=== PATIENT | male | born 1975 | race Caucasian/White ===

== ENCOUNTER 2016-07-22 13:53 | Inpatient (IN) ==
[2016-07-22] MEDS ORDERED: NARCAN IV ONE ×2 (14:00→20:38)
[2016-07-22] MEDS ORDERED: NS 1,000 ML IV ONE (14:04)
[2016-07-22 14:05] LABS: BLOOD TYPE ARTERIAL; METHB 1.6 % (0.0-1.5); PO2(98.6) 57 mmHg (60-100); SAMPLE BLOOD; SAO2 92.3 % (95.0-100.0); THB 14.8 g/dL (11.5-17.4)
[2016-07-22 14:06] LABS: MODALITY ROOM AIR; PCO2(98.6) 75 mmHg (35-45)
[2016-07-22 14:07] LABS: ALLEN TEST YES; DRAW SITE R RADIAL
[2016-07-22 14:18] LABS: MANUAL DIFF NEEDED? NO
[2016-07-22 14:23] LABS: BASO% 0.2 % (0.0-0.8); EOS# 0.47 X1000 (0.0-0.7); EOS% 4.7 % (0.0-10.0); HEMOGLOBIN 14.2 g/dL (14.0-18.0); LYMPH# 1.91 X1000 (1.2-3.4); MCH 32.4 PG (27-31); MCV 98.2 FL (81-99); MONO# 1.02 X1000 (0.11-0.59); MONO% 10.1 % (1.7-9.3); MPV 8.6 FL (7.4-10.4); PLT 312 X1000 (130-400); RBC 4.38 XMIL (4.7-6.1)
[2016-07-22 14:50] LABS: AGAP 8; ALBUMIN 4.4 g/dL (3.5-5.0); ALKALINE PHOSPHATASE 50 U/L (32-122); BUN 9 mg/dL (8-22); CALCIUM 9.4 mg/dL (8.8-10.2); CHLORIDE 96 mmol/L (98-107); COSMO 269; GOT 16 U/L (10-34); GPT 17 U/L (10-44); MAGNESIUM 2.2 mg/dL (1.5-2.7); POTASSIUM 4.2 mmol/L (3.5-5.1); SODIUM 134 mmol/L (136-145); TCO2 30 mmol/L (25-35); TOTAL BILIRUBIN 0.58 mg/dL (0.20-1.00); TOTAL PROTEIN 7.2 g/dL (6.3-8.3)
[2016-07-22 15:04] LABS: FREE T4 1.12 ng/dL (0.93-1.70)
[2016-07-22 15:28] LABS: ACETAMINOPHEN < 1.2 ug/mL (10-30)
[2016-07-22] MEDS ORDERED: NARCAN ONE (15:30)
[2016-07-22] MEDS ORDERED: CLINDAMYCIN 600 MG/NS 600 MG/50 ML IVPB IV ONE (15:50)
--- NOTE | 2016-07-22 15:57 | Diag Imaging Result Document ---
PROCEDURE NAME: KNEE 3 VIEWS LEFT - 07/22/2016 PLAIN RADIOGRAPH OF THE LEFT KNEE, 3 VIEWS: COMPARISON: None available. FINDINGS: There is no evidence of fracture, dislocation, or intrinsic osseous lesion. The joint spaces are preserved. There is marked prepatellar soft tissue edema. IMPRESSION: Prepatellar soft tissue edema but no evidence of acute osseous abnormality.
--- NOTE | 2016-07-22 15:58 | Diag Imaging Result Document ---
PROCEDURE NAME: HEAD W/O CONTRAST - 07/22/2016 CT BRAIN WITHOUT CONTRAST. TECHNIQUE: Dose reduction protocol. COMPARISON: No comparison films. FINDINGS: No parenchymal hemorrhage. No epidural or subdural hematoma. No subarachnoid hemorrhage. No mass identified on this noncontrasted exam. No midline shift. No hydrocephalus. No sinus opacification. IMPRESSION: No hemorrhage. Negative brain CT without contrast. A preliminary report was given at 3:05 p.m.
--- NOTE | 2016-07-22 16:05 | Diag Imaging Result Document ---
PROCEDURE NAME: CHEST-PORTABLE - 07/22/2016 SINGLE FRONTAL RADIOGRAPH OF THE CHEST: COMPARISON: None available. FINDINGS: The lungs are grossly clear. There is no discrete pleural fluid collection or pneumothorax. The cardiomediastinal silhouette and upper airway are grossly unremarkable. IMPRESSION: No evidence of acute chest pathology.
[2016-07-22 17:49] LABS: UR AMPHETAMINES QUAL PRESUMPTIVE POSITIVE (NONE DETECT); UR BARBITUATES QUAL NONE DETECTED (NONE DETECT); UR BENZODIAZEPIN QUAL NONE DETECTED (NONE DETECT); UR CANNABINOIDS QUAL NONE DETECTED (NONE DETECT); UR COCAINE QUAL NONE DETECTED (NONE DETECT); UR METHADONE QUAL NONE DETECTED (NONE DETECT); UR OPIATES QUAL NONE DETECTED (NONE DETECT); UR OXYCODONE QUAL NONE DETECTED (NONE DETECT); UR PCP QUAL NONE DETECTED (NONE DETECT)
[2016-07-22 17:57] LABS: URINE SOURCE CLEAN CATCH
[2016-07-22 18:02] LABS: BILIRUBIN URINE NEGATIVE (NEGATIVE); BLOOD URINE SMALL (NEGATIVE); COLOR YELLOW; GLUCOSE URINE NEGATIVE (NEGATIVE); LEUKOCYTES URINE SMALL (NEGATIVE); NITRITE URINE NEGATIVE (NEGATIVE); PH URINE 5.5; PROTEIN URINE TRACE mg/dL (NEGATIVE); TURBIDITY URINE TURBID (CLEAR); URINE MICRO REVIEW NEEDED? YES; UROBILINOGEN URINE NORMAL (NORMAL)
--- NOTE | 2016-07-22 18:04 | PROVIDER DOCUMENTATION ---
This chart was entered by Genoveva Salvador Scribe, acting as scribe for Narayan Ramos MD. HPI-General Adult <Garret SantiagoDarnell - Last Filed: 07/22/16 15:51> - General Source: patient, EMS - History of Present Illness -Gen Adult Nature of Presenting Problems: PT IS A 41YOM PRESENTING TO THE ED C/O AMS W/ RESPIRATORY DISTRESS. EMS REPORTS THEY WERE DISPATCHED AT 1305 TO [facility] IN [place] FOR A RESPIRATORY ARREST. ACCORDING TO EMS THEY ARRIVED ON SCENE AT 1310 AND PT WAS UNRESPONSIVE, NO VOLUNTARY RESPIRATIONS NOTED OR GAG REFLEX. ACCORDING TO CO-WORKERS HE HAS A HX OF THIS. EMS STATES THEY PLACED A 7.5 ET-TUBE AT 1320 WITH A 16G IN LEFT FOREARM. UPON ARRIVAL TO ED EMS WAS PREPARING TO GIVE NARCAN AND PT WOKE UP AND EX-TUBATED HIMSELF AND REMOVED IV ON RAMP OF ED AT 1347. EMS PLACED PT ON ED BED ROOM 13 AT 1349 AND PT WAS ALTERED WITH AN O2 Sat of 85%, 94hr, and bp of 146/93. PT OXYGEN SATURATION BEGAN TO DECLINE INTO THE LOW 70'S, SO 2MG OF NARCAN WAS ORDERED AND GIVEN TO PT IN LEFT HIP IM. 1357 PT LOST GAG REFLUX AND WAS BEING PREPARED TO INTUBATE, PTS OXY SAT WAS IN THE LOW 70'S AT THIS TIME AND HYPERVENTILATION WAS BEING PREFORMED IN PREP FOR AIRWAY MANAGEMENT BY ET TUBE. 1400 PT AWOKE AND OXYGEN SAT RETURNED TO 98% WITH A STABLE HEART RATE AND BP, PT STATES HE WAS USING METH TODAY, LAST PM AND YESTERDAY BUT DENIES ANY OTHER ILLICIT DRUG USE. PT IS A ALERT, AWAKE, AND OXYGENATING WELL AFTER NARCAN. AT THIS TIME NO OTHER COMPLAINTS Location of Pain/Injury: reports: generalized Pain Radiation: reports: no radiation Quality of Pain: reports: none Severity: reports: severe Onset/Duration: reports: just prior to arrival Timing: reports: still present, improving, intermittent Context/Activities at Onset: reports: light activity Modifying Factors: improves with: nothing Associated Symptoms: reports: shortness of breath, other (LOC WITH RESP ARREST AND AMS WITH RESP DISTRESS). denies: chest pain Similar Symptoms Previously?: Yes (ACCORDING TO CO-WORKERS PT HAS A HX PREVIOUS EPISODES ) Recently seen or treated by another doctor?: No <Narayan Ramos - Last Filed: 07/22/16 18:04> - General Source: patient, EMS - History of Present Illness -Gen Adult Location of Pain/Injury: reports: generalized Pain Radiation: reports: no radiation Quality of Pain: reports: none Severity: reports: severe Onset/Duration: reports: just prior to arrival Timing: reports: still present, improving, intermittent Context/Activities at Onset: reports: light activity Modifying Factors: improves with: nothing Associated Symptoms: reports: shortness of breath, other. denies: chest pain Similar Symptoms Previously?: Yes Recently seen or treated by another doctor?: No <Andrew Shah - Last Filed: 07/22/16 21:44> - General Chief Complaint: Altered Mental Status Stated Complaint: resp arrest Time Seen by Provider: 07/22/16 13:51 Allergies/Adverse Reactions: Patient Allergies Allergy/AdvReac Type Severity Reaction Status Date / Time No Known Allergies Allergy Verified 12/02/14 08:06 Home Medications: Home Medication List Medication Instructions Recorded Confirmed Last Taken Type NK [No Home Medications] 07/22/16 07/22/16 Unknown History Review of Systems - Adult - REVIEW OF SYSTEMS - ADULT Constitutional: reports: no symptoms reported Eyes: reports: no symptoms reported Ears, Nose, Mouth & Throat: reports: no symptoms reported Cardiovascular: reports: no symptoms reported Respiratory: reports: see HPI, excessive sputum production, shortness of breath , other (PT IN RESP FAILURE/DISTRESS). denies: dyspnea on exertion Gastrointestinal: reports: no symptoms reported Genitourinary: reports: no symptoms reported Musculoskeletal: reports: no symptoms reported Integumentary: reports: no symptoms reported Neurological: reports: no symptoms reported Psychiatric: reports: see HPI, alcohol/drug dependence, other (POSS OVER DOSE OF METH USE, PT DENIES ANY OTHER ILLICIT DRUG USE). denies: depression, emotional problems Endocrine: reports: no symptoms reported Hematologic/Lymphatic: reports: no symptoms reported Allergic/Immunologic: reports: no symptoms reported All Other Systems: Reviewed and Negative <Narayan Ramos - Last Filed: 07/22/16 18:04> - REVIEW OF SYSTEMS - ADULT Constitutional: reports: no symptoms reported Eyes: reports: no symptoms reported Ears, Nose, Mouth & Throat: reports: no symptoms reported Cardiovascular: reports: no symptoms reported Respiratory: reports: see HPI, excessive sputum production, shortness of breath , other. denies: dyspnea on exertion Gastrointestinal: reports: no symptoms reported Genitourinary: reports: no symptoms reported Musculoskeletal: reports: no symptoms reported Integumentary: reports: no symptoms reported Neurological: reports: no symptoms reported Psychiatric: reports: see HPI, alcohol/drug dependence, other. denies: depression Endocrine: reports: no symptoms reported Hematologic/Lymphatic: reports: no symptoms reported Allergic/Immunologic: reports: no symptoms reported All Other Systems: Reviewed and Negative <Andrew Shah - Last Filed: 07/22/16 21:44> Past History - Adult - PAST MEDICAL HISTORY-ADULT Review of Records: reports: Old Records Reviewed, Nursing Assessment Review, Medications Reviewed, Social history reviewed & non-contributory. Major Childhood Illnesses: reports: denies history Cardiovascular: reports: denies history Respiratory: reports: denies history Gastrointestinal: reports: denies history Obstetrical/Gynecological: reports: denies history Genitourinary: reports: denies history Musculoskeletal: reports: denies history Neurological: reports: denies history Endocrine/Immune: reports: denies history Other Conditions: reports: denies history - IMMUNIZATION STATUS Childhood Immunizations: See Nurse Assessment Flu Vaccine: See Nurse Assessment - FAMILY HISTORY Family History: reviewed, not pertinent - SOCIAL HISTORY Smoking: cigarettes, greater than 1 pack/day Provider spent 3-5 mins advising pt. on dangers of tobacco.: Discussed manners to quit use, and f/u contacts for add'l counseling. Substance Use: other (METH) Living Situation: alone <Juan JoséNarayan Tello - Last Filed: 07/22/16 18:04> - PAST MEDICAL HISTORY-ADULT Review of Records: reports: Old Records Reviewed, Nursing Assessment Review, Medications Reviewed, Social history reviewed & non-contributory. Major Childhood Illnesses: reports: denies history Cardiovascular: reports: denies history Respiratory: reports: denies history Gastrointestinal: reports: denies history Obstetrical/Gynecological: reports: denies history Genitourinary: reports: denies history Musculoskeletal: reports: denies history Neurological: reports: denies history Endocrine/Immune: reports: denies history Other Conditions: reports: denies history - IMMUNIZATION STATUS Childhood Immunizations: See Nurse Assessment Flu Vaccine: See Nurse Assessment - FAMILY HISTORY Family History: reviewed, not pertinent - SOCIAL HISTORY Smoking: cigarettes, greater than 1 pack/day Provider spent 3-5 mins advising pt. on dangers of tobacco.: Discussed manners to quit use, and f/u contacts for add'l counseling. Substance Use: other Living Situation: alone <Andrew Shah - Last Filed: 07/22/16 21:44> Physical Exam-General - PHYSICAL EXAM-ADULT Initial Vital Signs Reviewed: Yes - CONSTITUTIONAL General Appearance: severe distress, lethargic, obtunded. negative: appears well, alert, no apparent distress - EYES Eyes: PERRL/EOMI, fundi clear, no AV nicking, pale conjunctivae. negative: pink conjunctivae - HEAD, EARS, NOSE, MOUTH & THROAT HENMT: normocephalic/atraumatic, moist mucous membranes, TMs normal, pharynx normal, other (LARGE AMOUNTS OF [place]ITE [place]) - NECK Neck: non-tender, full range of motion, supple, normal inspection - RESPIRATORY Respiratory: chest non-tender, lungs clear, no pleuratic chest pain, respiratory distress, prolonged expiration, decreased rate. negative: normal breath sounds, no respiratory distress, no accessory muscle use - CARDIOVASCULAR Cardiovascular: normal peripheral pulses, no edema, no gallop, no JVD, no murmur , tachycardia. 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 negative: appears well, alert, no apparent distress - EYES Eyes: PERRL/EOMI, fundi clear, no AV nicking, pale conjunctivae. negative: pink conjunctivae - HEAD, EARS, NOSE, MOUTH & THROAT HENMT: normocephalic/atraumatic, moist mucous membranes, TMs normal, pharynx normal, other - NECK Neck: non-tender, full range of motion, supple, normal inspection - RESPIRATORY Respiratory: chest non-tender, lungs clear, no pleuratic chest pain, respiratory distress, prolonged expiration, decreased rate. negative: normal breath sounds, no respiratory distress, no accessory muscle use - CARDIOVASCULAR Cardiovascular: normal peripheral pulses, no edema, no gallop, no JVD, no murmur , tachycardia. 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 - PSYCHIATRIC Psych/Mental Status: disheveled, depressed affect <Andrew Shah - Last Filed: 07/22/16 21:44> Progress - PLAN OF CARE/RESULTS Progress/Plan/Lab Results: Vital Signs - 8 hr 07/22/16 13:56 Pulse Rate 94 H Respiratory Rate 16 Blood Pressure 146/93 O2 Sat by Pulse Oximetry 88 L Laboratory Results - last 24 hr 07/22/16 07/22/16 07/22/16 13:50 14:05 14:05 WBC RBC Hgb Hct MCV MCH MCHC RDW Std Deviation Plt Count MPV Neut % (Auto) Lymph % (Auto) [place] % (Auto) Eos % (Auto) Baso % (Auto) Neut # (Auto) Lymph # (Auto) [place] # (Auto) Eos # (Auto) Baso # (Auto) Specimen Type ARTERIAL Sample Site R RADIAL pH 7.20 L pCO2 75 H* pO2 57 L HCO3 23.8 Base Excess -1.0 Oxyhemoglobin 86.6 L* ABG O2 Sat (Calculated) 18.0 ABG O2 Saturation 92.3 L ABG Carboxyhemoglobin 4.60 H ABG Methemoglobin 1.6 H Stephane Test YES A-a O2 Difference -1.0 Total Hemoglobin 14.8 Lactate 1.50 Blood Gas Modality ROOM AIR FiO2 % 21.0 Sodium 134 L Potassium 4.2 Chloride 96 L Carbon Dioxide 30 Anion Gap 8 BUN 9 Creatinine 1.0 Estimated GFR/1.73 m2 > 60 BUN/Creatinine Ratio 9 Glucose 135 H Calculated Osmolality 269 Calcium 9.4 Magnesium 2.2 Total Bilirubin 0.58 AST 16 ALT 17 Alkaline Phosphatase 50 Troponin T < 0.010 Total Protein 7.2 Albumin 4.4 Globulin 2.8 Albumin/Globulin Ratio 1.6 Vitamin B12 TSH Free T4 Salicylates < 3.00 L Acetaminophen < 1.2 L Plasma/Serum Ethyl Alc 07/22/16 07/22/16 07/22/16 14:05 14:05 14:05 WBC 10.06 RBC 4.38 L Hgb 14.2 Hct 43.0 MCV 98.2 MCH 32.4 H MCHC 33.0 RDW Std Deviation 14.9 H Plt Count 312 MPV 8.6 Neut % (Auto) 66.0 Lymph % (Auto) 19.0 L [place] % (Auto) 10.1 H Eos % (Auto) 4.7 Baso % (Auto) 0.2 Neut # (Auto) 6.64 H Lymph # (Auto) 1.91 [place] # (Auto) 1.02 H Eos # (Auto) 0.47 Baso # (Auto) 0.02 Specimen Type Sample Site pH pCO2 pO2 HCO3 Base Excess Oxyhemoglobin ABG O2 Sat (Calculated) ABG O2 Saturation ABG Carboxyhemoglobin ABG Methemoglobin Stephane Test A-a O2 Difference Total Hemoglobin Lactate Blood Gas Modality FiO2 % Sodium Potassium Chloride Carbon Dioxide Anion Gap BUN Creatinine Estimated GFR/1.73 m2 BUN/Creatinine Ratio Glucose Calculated Osmolality Calcium Magnesium Total Bilirubin AST ALT Alkaline Phosphatase Troponin T Total Protein Albumin Globulin Albumin/Globulin Ratio Vitamin B12 428 TSH 2.97 Free T4 1.12 Salicylates Acetaminophen Plasma/Serum Ethyl Alc Orders Category Date Time Status Saline Loc NOW Care 07/22/16 14:04 Active CHEST-PORTABLE [RAD] Stat Exams 07/22/16 14:04 Taken HEAD W/O CONTRAST [CT] Stat Exams 07/22/16 14:04 Taken KNEE 3 VIEWS LEFT [RAD] Routine Exams 07/22/16 15:04 Taken ABG [RESP] Routine Lab 07/22/16 13:50 Completed ACETAMINOPHEN [TDM] Stat Lab 07/22/16 14:05 Completed ALCOHOL BLOOD Stat Lab 07/22/16 14:05 Completed CBC WITH ELECTRONIC DIFF [HEME] Stat Lab 07/22/16 14:05 Completed COMPREHENSIVE METABOLIC PANEL [CHEM] Stat Lab 07/22/16 14:05 Completed FREE T4 Stat Lab 07/22/16 14:05 Completed MAGNESIUM [CHEM] Stat Lab 07/22/16 14:05 Completed SALICYLATES [TDM] Stat Lab 07/22/16 14:05 Completed TROPONIN T Stat Lab 07/22/16 14:05 Completed TSH Stat Lab 07/22/16 14:05 Completed URINALYSIS W/POSS RFLX CULT [URINALYSIS] Stat Lab 07/22/16 14:05 Uncollected URINE DRUG SCREEN Stat Lab 07/22/16 14:05 Uncollected VITAMIN B12 Stat Lab 07/22/16 14:05 Completed 0.9% Sodium Chloride Inj [Ns] 1,000 ml Med 07/22/16 14:04 Discontinued IV 999 mls/hr Clindamycin 600 mg/Ns Med 07/22/16 15:50 Active 600 mg in 50 ml IV NOW Naloxone [Narcan] Med 07/22/16 15:30 Discontinued 2 mg .ROUTE .STK-MED ONE Naloxone [Narcan] Med 07/22/16 14:00 Discontinued 2 mg IV NOW ONE EKG [EKG] Stat Ther 07/22/16 14:04 Ordered Result Diagrams: 07/22/16 14:05 07/22/16 14:05 - REASSESSMENT Reassessment #1 Time Reassessed: 15:51 (RN requested that I look at pt's L knee. It has several blisters and discolored lesions that may be a burn. pt states he has no idea when or why he developed these lesions. x-ray was ordered. We will cover c Clindamycin ) <Garret Santiago - Last Filed: 07/22/16 15:51> - PLAN OF CARE/RESULTS Result Diagrams: 07/22/16 14:05 07/22/16 14:05 - XRAY 1 XRAY: Left XRAY Study: Knee (PREPATTELLAR SOFT TISSUE EDEMA BUT NMO EVIDENCE OF ACUTE OSSEOUS ABNORM) 2 XRAY: Bilateral XRAY Study: Chest (NAD) - CT/MRI 1 CT Study: Head (NEG HEAD CT) <Narayan Ramos X - Last Filed: 07/22/16 18:04> - PLAN OF CARE/RESULTS Progress/Plan/Lab Results: Vital Signs - 8 hr 07/22/16 13:56 07/22/16 16:00 07/22/16 19:29 Pulse Rate 94 H 76 72 Respiratory Rate 16 11 L 10 L Blood Pressure 146/93 119/81 125/87 O2 Sat by Pulse Oximetry 88 L 99 97 Laboratory Results - last 24 hr 07/22/16 07/22/16 07/22/16 13:50 14:05 14:05 WBC RBC Hgb Hct MCV MCH MCHC RDW Std Deviation Plt Count MPV Neut % (Auto) Lymph % (Auto) [place] % (Auto) Eos % (Auto) Baso % (Auto) Neut # (Auto) Lymph # (Auto) [place] # (Auto) Eos # (Auto) Baso # (Auto) Specimen Type ARTERIAL Sample Site R RADIAL pH 7.20 L pCO2 75 H* pO2 57 L HCO3 23.8 Base Excess -1.0 Oxyhemoglobin 86.6 L* ABG O2 Sat (Calculated) 18.0 ABG O2 Saturation 92.3 L ABG Carboxyhemoglobin 4.60 H ABG Methemoglobin 1.6 H Stephane Test YES A-a O2 Difference -1.0 Total Hemoglobin 14.8 Lactate 1.50 Liter Flow Blood Gas Modality ROOM AIR FiO2 % 21.0 Sodium 134 L Potassium 4.2 Chloride 96 L Carbon Dioxide 30 Anion Gap 8 BUN 9 Creatinine 1.0 Estimated GFR/1.73 m2 > 60 BUN/Creatinine Ratio 9 Glucose 135 H Calculated Osmolality 269 Calcium 9.4 Magnesium 2.2 Total Bilirubin 0.58 AST 16 ALT 17 Alkaline Phosphatase 50 Troponin T < 0.010 Total Protein 7.2 Albumin 4.4 Globulin 2.8 Albumin/Globulin Ratio 1.6 Vitamin B12 TSH Free T4 Urine Source Urine Color Urine Clarity Urine Turbidity Urine pH Ur Specific Lewis Urine Protein Ur Glucose (Stick) Urine Ketones Ur Ketones (Stick) Urine Blood Urine Nitrite Urine Bilirubin Urine Urobilinogen Urobilinogen Dipstick Urine Leukocytes Urine WBC (Auto) Urine RBC (Auto) U Epithel Cells (Auto) Urine Bacteria (Auto) Urine Microscopic RBC Urine WBC Urine Microscopic WBC Ur Epithelial Cells Urine Crystals Small Round Cells Urine Bacteria Urine Casts Urine Yeast-like Cells Urine Yeast Urine Glucose Salicylates < 3.00 L Urine Opiates Screen Ur Oxycodone Screen Ur Methadone, Qual Acetaminophen < 1.2 L Ur Barbiturates Screen Ur Phencyclidine Scrn Ur Amphetamines Screen U Benzodiazepines Scrn Urine Cocaine Screen U Cannabinoids Screen Plasma/Serum Ethyl Alc 07/22/16 07/22/16 07/22/16 14:05 14:05 14:05 WBC 10.06 RBC 4.38 L Hgb 14.2 Hct 43.0 MCV 98.2 MCH 32.4 H MCHC 33.0 RDW Std Deviation 14.9 H Plt Count 312 MPV 8.6 Neut % (Auto) 66.0 Lymph % (Auto) 19.0 L [place] % (Auto) 10.1 H Eos % (Auto) 4.7 Baso % (Auto) 0.2 Neut # (Auto) 6.64 H Lymph # (Auto) 1.91 [place] # (Auto) 1.02 H Eos # (Auto) 0.47 Baso # (Auto) 0.02 Specimen Type Sample Site pH pCO2 pO2 HCO3 Base Excess Oxyhemoglobin ABG O2 Sat (Calculated) ABG O2 Saturation ABG Carboxyhemoglobin ABG Methemoglobin Stephane Test A-a O2 Difference Total Hemoglobin Lactate Liter Flow Blood Gas Modality FiO2 % Sodium Potassium Chloride Carbon Dioxide Anion Gap BUN Creatinine Estimated GFR/1.73 m2 BUN/Creatinine Ratio Glucose Calculated Osmolality Calcium Magnesium Total Bilirubin AST ALT Alkaline Phosphatase Troponin T Total Protein Albumin Globulin Albumin/Globulin Ratio Vitamin B12 428 TSH 2.97 Free T4 1.12 Urine Source Urine Color Urine Clarity Urine Turbidity Urine pH Ur Specific Lewis Urine Protein Ur Glucose (Stick) Urine Ketones Ur Ketones (Stick) Urine Blood Urine Nitrite Urine Bilirubin Urine Urobilinogen Urobilinogen Dipstick Urine Leukocytes Urine WBC (Auto) Urine RBC (Auto) U Epithel Cells (Auto) Urine Bacteria (Auto) Urine Microscopic RBC Urine WBC Urine Microscopic WBC Ur Epithelial Cells Urine Crystals Small Round Cells Urine Bacteria Urine Casts Urine Yeast-like Cells Urine Yeast Urine Glucose Salicylates Urine Opiates Screen Ur Oxycodone Screen Ur Methadone, Qual Acetaminophen Ur Barbiturates Screen Ur Phencyclidine Scrn Ur Amphetamines Screen U Benzodiazepines Scrn Urine Cocaine Screen U Cannabinoids Screen Plasma/Serum Ethyl Alc 07/22/16 07/22/16 07/22/16 17:15 17:29 17:45 WBC RBC Hgb Hct MCV MCH MCHC RDW Std Deviation Plt Count MPV Neut % (Auto) Lymph % (Auto) [place] % (Auto) Eos % (Auto) Baso % (Auto) Neut # (Auto) Lymph # (Auto) [place] # (Auto) Eos # (Auto) Baso # (Auto) Specimen Type Sample Site pH pCO2 pO2 HCO3 Base Excess Oxyhemoglobin ABG O2 Sat (Calculated) ABG O2 Saturation ABG Carboxyhemoglobin ABG Methemoglobin Stephane Test A-a O2 Difference Total Hemoglobin Lactate Liter Flow Blood Gas Modality FiO2 % Sodium Potassium Chloride Carbon Dioxide Anion Gap BUN Creatinine Estimated GFR/1.73 m2 BUN/Creatinine Ratio Glucose Calculated Osmolality Calcium Magnesium Total Bilirubin AST ALT Alkaline Phosphatase Troponin T Total Protein Albumin Globulin Albumin/Globulin Ratio Vitamin B12 TSH Free T4 Urine Source Cancelled CLEAN CATCH Urine Color Cancelled YELLOW Urine Clarity Cancelled Urine Turbidity TURBID Urine pH Cancelled 5.5 Ur Specific Lewis Cancelled 1.020 Urine Protein Cancelled TRACE A Ur Glucose (Stick) NEGATIVE Urine Ketones Cancelled Ur Ketones (Stick) NEGATIVE Urine Blood Cancelled SMALL A Urine Nitrite Cancelled NEGATIVE Urine Bilirubin Cancelled NEGATIVE Urine Urobilinogen Cancelled Urobilinogen Dipstick NORMAL Urine Leukocytes SMALL A Urine WBC (Auto) 10-20 A Urine RBC (Auto) 10-20 A U Epithel Cells (Auto) <10 Urine Bacteria (Auto) NEGATIVE Urine Microscopic RBC Cancelled Urine WBC Cancelled Urine Microscopic WBC Cancelled Ur Epithelial Cells Cancelled Urine Crystals Cancelled CA OXALATE PRESENT Small Round Cells Cancelled Not Reportable Urine Bacteria Cancelled Urine Casts Cancelled NONE SEEN Urine Yeast-like Cells NONE SEEN Urine Yeast Cancelled Urine Glucose Cancelled Salicylates Urine Opiates Screen NONE DETECTED Ur Oxycodone Screen NONE DETECTED Ur Methadone, Qual NONE DETECTED Acetaminophen Ur Barbiturates Screen NONE DETECTED Ur Phencyclidine Scrn NONE DETECTED Ur Amphetamines Screen PRESUMPTIVE POSITIVE A U Benzodiazepines Scrn NONE DETECTED Urine Cocaine Screen NONE DETECTED U Cannabinoids Screen NONE DETECTED Plasma/Serum Ethyl Alc 07/22/16 20:45 WBC RBC Hgb Hct MCV MCH MCHC RDW Std Deviation Plt Count MPV Neut % (Auto) Lymph % (Auto) [place] % (Auto) Eos % (Auto) Baso % (Auto) Neut # (Auto) Lymph # (Auto) [place] # (Auto) Eos # (Auto) Baso # (Auto) Specimen Type ARTERIAL Sample Site R RADIAL pH 7.13 L* pCO2 95 H* pO2 71 HCO3 24.1 Base Excess -0.8 Oxyhemoglobin 90.8 L ABG O2 Sat (Calculated) 18.8 ABG O2 Saturation 95.6 ABG Carboxyhemoglobin 3.30 H ABG Methemoglobin 1.7 H Stephane Test YES A-a O2 Difference 38.0 Total Hemoglobin 14.7 Lactate 0.40 L Liter Flow 3.0 Blood Gas Modality CANNULA FiO2 % 32.0 Sodium Potassium Chloride Carbon Dioxide Anion Gap BUN Creatinine Estimated GFR/1.73 m2 BUN/Creatinine Ratio Glucose Calculated Osmolality Calcium Magnesium Total Bilirubin AST ALT Alkaline Phosphatase Troponin T Total Protein Albumin Globulin Albumin/Globulin Ratio Vitamin B12 TSH Free T4 Urine Source Urine Color Urine Clarity Urine Turbidity Urine pH Ur Specific Lewis Urine Protein Ur Glucose (Stick) Urine Ketones Ur Ketones (Stick) Urine Blood Urine Nitrite Urine Bilirubin Urine Urobilinogen Urobilinogen Dipstick Urine Leukocytes Urine WBC (Auto) Urine RBC (Auto) U Epithel Cells (Auto) Urine Bacteria (Auto) Urine Microscopic RBC Urine WBC Urine Microscopic WBC Ur Epithelial Cells Urine Crystals Small Round Cells Urine Bacteria Urine Casts Urine Yeast-like Cells Urine Yeast Urine Glucose Salicylates Urine Opiates Screen Ur Oxycodone Screen Ur Methadone, Qual Acetaminophen Ur Barbiturates Screen Ur Phencyclidine Scrn Ur Amphetamines Screen U Benzodiazepines Scrn Urine Cocaine Screen U Cannabinoids Screen Plasma/Serum Ethyl Alc Orders Category Date Time Status Saline Loc NOW Care 07/22/16 14:04 Active CHEST-PORTABLE [RAD] Stat Exams 07/22/16 14:04 Draft HEAD W/O CONTRAST [CT] Stat Exams 07/22/16 14:04 Completed KNEE 3 VIEWS LEFT [RAD] Routine Exams 07/22/16 15:04 Draft ABG [RESP] Routine Lab 07/22/16 13:50 Completed ABG [RESP] Routine Lab 07/22/16 20:45 Completed ACETAMINOPHEN [TDM] Stat Lab 07/22/16 14:05 Completed ALCOHOL BLOOD Stat Lab 07/22/16 14:05 Completed CBC WITH ELECTRONIC DIFF [HEME] Stat Lab 07/22/16 14:05 Completed COMPREHENSIVE METABOLIC PANEL [CHEM] Stat Lab 07/22/16 14:05 Completed FREE T4 Stat Lab 07/22/16 14:05 Completed MAGNESIUM [CHEM] Stat Lab 07/22/16 14:05 Completed SALICYLATES [TDM] Stat Lab 07/22/16 14:05 Completed TROPONIN T Stat Lab 07/22/16 14:05 Completed TSH Stat Lab 07/22/16 14:05 Completed URINALYSIS W/POSS RFLX CULT [URINALYSIS] Stat Lab 07/22/16 17:45 Completed URINE CULTURE [RM] Routine Lab 07/22/16 18:55 Received URINE DRUG SCREEN Stat Lab 07/22/16 17:15 Completed URINE MANUAL MICROSCOPIC [URINALYSIS] Stat Lab 07/22/16 17:45 Completed VITAMIN B12 Stat Lab 07/22/16 14:05 Completed 0.9% Sodium Chloride Inj [Ns] 1,000 ml Med 07/22/16 14:04 Discontinued IV 999 mls/hr Clindamycin 600 mg/Ns Med 07/22/16 15:50 Discontinued 600 mg in 50 ml IV NOW Naloxone [Narcan] Med 07/22/16 15:30 Discontinued 2 mg .ROUTE .STK-MED ONE Naloxone [Narcan] Med 07/22/16 14:00 Discontinued 2 mg IV NOW ONE Naloxone [Narcan] Med 07/22/16 20:38 Discontinued 2 mg IV NOW ONE EKG [EKG] Stat Ther 07/22/16 14:04 Ordered Result Diagrams: 07/22/16 14:05 07/22/16 14:05 - CHANGE OF SHIFT REPORT (ED Provider) Report Given and Care Transferred to:: Dr Trevino Time of Transfer: 21:42 <Andrew Shah - Last Filed: 07/22/16 21:44> Departure <Garret Santiago - Last Filed: 07/22/16 15:51> - Departure Time of Disposition Decision: 17:53 Certified Medical Emergency: Emergent - Critical Care Note Total Time (mins): 60 (dr kike ramos) Critical Care Statement: This patient required my direct personal management to treat or rule out processes, the absence of which, could potentiallly result in sudden, clinically significant life or limb threatening deterioration. <Narayan Ramos - Last Filed: 07/22/16 18:04> - Departure Time of Disposition Decision: 21:21 Certified Medical Emergency: Emergent <Andrew Shah - Last Filed: 07/22/16 21:44> - Departure DIAGNOSIS: Respiratory failure, Acute drug overdose Disposition: ADMITTED INPATIENT 09 Condition: Stable Referrals and Follow-Ups: None,PCP [Primary Care Provider] - This chart was documented by the indicated scribe, (Genoveva Salvador Scribe) and accurately reflects the services I performed and decisions made by me, Narayan Ramos MD, as attested by the provider's signature.
[2016-07-22 18:13] LABS: UR EPITHELIAL CELLS <10 /HPF (<10); URINE BACTERIA NEGATIVE /HPF; URINE CULTURE NEEDED? YES
[2016-07-22 18:20] LABS: URINE CASTS NONE SEEN; URINE CRYSTALS CA OXALATE PRESENT
[2016-07-22 21:00] LABS: ALLEN TEST YES; BE -0.8 mmoll (-3.0-3.0); BLOOD TYPE ARTERIAL; DRAW SITE R RADIAL; METHB 1.7 % (0.0-1.5); O2(CT) 18.8 mL/dL (15.0-23.0); PO2(98.6) 71 mmHg (60-100); SAMPLE BLOOD; SAO2 95.6 % (95.0-100.0); THB 14.7 g/dL (11.5-17.4)
[2016-07-22 21:03] LABS: MODALITY CANNULA; PCO2(98.6) 95 mmHg (35-45); pH(98.6) 7.13 (7.35-7.45)
[2016-07-22] MEDS ORDERED: NARCAN 2 MG in NS 500 ML IV SCH (22:15)
--- NOTE | 2016-07-22 22:57 | ED EKG INTERP ---
This chart was entered by Ashanti Saldaña Scribe, acting as scribe for Andrew Shah MD. EKG Interpretation - EKG Time of EKG reading by physician:: 22:21 EKG Read and Signed by:: Andrew Shah EKG Interpretation (*Must complete 3 of following elements*): Normal Rate: 83 Rhythm: NSR [place]: normal This chart was documented by the indicated scribe, (Ashanti Saldaña Scribe) and accurately reflects the services I performed and decisions made by Pablo gonzalez Robert H., MD, as attested by the provider's signature.
[2016-07-22 23:44] LABS: ALLEN TEST YES; BE 1.6 mmoll (-3.0-3.0); BLOOD TYPE ARTERIAL; DRAW SITE L BRACHIAL; METHB 1.8 % (0.0-1.5); O2(CT) 18.7 mL/dL (15.0-23.0); PO2(98.6) 95 mmHg (60-100); SAMPLE BLOOD; SAO2 99.3 % (95.0-100.0); THB 13.9 g/dL (11.5-17.4); pH(98.6) 7.29 (7.35-7.45)
[2016-07-22 23:45] LABS: MODALITY CANNULA; PCO2(98.6) 62 mmHg (35-45)
[2016-07-23] MEDS ORDERED: TYLENOL PO PRN (01:23)
[2016-07-23] MEDS ORDERED: LOVENOX SUBQ SCH (01:23)
[2016-07-23] MEDS ORDERED: ZOFRAN IV PRN (01:23)
[2016-07-23] MEDS: NS 1,000 ML IV SCH ×2 (02:05→11:37)
[2016-07-23] MEDS: CLINDAMYCIN 600 MG/NS 600 MG/50 ML IVPB IV SCH ×2 (02:05→11:37)
--- NOTE | 2016-07-23 03:53 | HISTORY AND PHYSICAL ---
CHIEF COMPLAINT: Unresponsiveness. HISTORY OF PRESENT ILLNESS: This is a 41-year-old, male who has a history of drug use. He was at work today. Apparently, he works at [employer] in [place]. EMS was dispatched for a respiratory arrest. According to EMS, they arrived on the scene. The patient was unresponsive, had no gag reflex. This was around 1 p.m. this afternoon. He was subsequently intubated. Upon arrival to the ER, they were preparing to give the patient Narcan when he woke up and extubated himself. He was placed on the ER bed. He was saturating around 85%. He did receive an IM dose of Narcan. He subsequently then, around 2:00, lost his gag reflex and spontaneous respirations again. Oxygen saturation fell into the 70s. They were preparing to intubate and then the patient spontaneously woke up again. His oxygen saturation claire to 98%. He has had a stable heart rate. The patient admitted to using methamphetamine, which he smokes. He denied any other illicit drug use or abuse. However, he began not saturating well after Narcan. We were called to admit the patient. During my assessment, the patient told me that he had a fentanyl patch on his scrotum. This was removed. He continued to have apneic spells. A Narcan drip was started in the emergency room. He will be admitted to the ICU at [facility] for close observation. PAST MEDICAL HISTORY: Denies any past medical history. PAST SURGICAL HISTORY: Appendectomy. SOCIAL HISTORY: Lives with his family. A 1 pack per day smoker. Denies alcohol. Uses methamphetamines. States that he does not usually take other drugs. However, he did put that fentanyl patch on today and he had forgotten that he had it on. FAMILY HISTORY: The daughter at the bedside has panic attacks and seizures. Mother has psychiatric issues. ALLERGIES: No known drug allergies. REVIEW OF SYSTEMS: A 14-point review of systems conducted with the patient. He had complaint of shortness of breath and feeling lethargic. All other systems were reviewed and negative. PHYSICAL EXAMINATION: VITAL SIGNS: Temperature 97.2 degrees, pulse 89, respirations 21, blood pressure 124/76, oxygen saturation 96-100% on 3 L nasal cannula. GENERAL: Lethargic appearing, 41-year-old male lying on the ER stretcher. Admits to using methamphetamines. Also admits to having a fentanyl patch, unknown dosage, on his scrotum. This was removed. He is oriented x3. He does have periods where he falls asleep during conversation and does have apnea during these spells. HEENT: Head is atraumatic, normocephalic. Pupils equal, round, reactive to light. Extraocular eye movement intact. Sclerae are anicteric. Conjunctivae are pink. Oral mucosa is moist. NECK: Supple. No JVD. No thyromegaly. Trachea is midline. No cervical lymphadenopathy. CARDIAC: Regular rate. S1 and S2 are appreciated. No murmurs, gallops, rubs. LUNGS: Clear to auscultation bilaterally. No rhonchi, wheezes, or rales. Symmetrical rise and fall with respirations. The patient was noted having apneic spells when he fell asleep. ABDOMEN: Soft, nondistended, nontender. Bowel sounds present in all 4 quadrants, normoactive. No pulsatile mass. No organomegaly. EXTREMITIES: No clubbing, cyanosis, or edema. There are 2+ pedal pulses bilaterally. Left lower extremity at the point of the patella, it was noted on examination that the patient had erythema and blistering. The patient was asked about this and he had no recollection of when he got this or how he had come about having this on his knee. GENITOURINARY: The patient voids. Otherwise deferred. NEUROLOGICAL: Lethargic, alert and oriented x3. Dozes off easily during conversation. Does follow commands when awake. No focal deficits noted. Cranial nerves 2-12 appear to be grossly intact. DIAGNOSTIC DATA: A left knee x-ray shows prepatellar soft tissue edema but no evidence of acute osseous abnormality. Chest x-ray NAD. LABORATORY DATA: WBC 10.06, hemoglobin 14.4, hematocrit 43, platelet count 312, 000. ABG, pH ranged from 7.2 on arrival to 7.13 six hours after arrival. After the fentanyl patch was removed, pH returned to 7.29, so pH of 7.29, pCO2 of 62, PO2 of 95, bicarb of 26.1. This was on 3 L nasal cannula. Sodium 134, potassium 4.2, chloride 96, carbon dioxide 30, BUN 9, creatinine 1, glucose 135. Troponin less than 0.01. Urine unremarkable. Toxicology screen positive for amphetamines. ASSESSMENT AND PLAN: 1. Drug abuse with subsequent overdose. Patient admitted to using amphetamines. He did also admit to having a fentanyl patch on his scrotum. He states that he does not usually take this. This was likely the cause of his respiratory distress. The fentanyl patch was removed and the patient was placed on a Narcan drip. 2. Acute respiratory failure secondary to drug use. The patient was intubated in the field, subsequently extubated, is saturating well on 3 L nasal cannula. 3. Tobacco abuse. Smoking cessation was gone over with the patient. He does not want to quit at this time. 4. Possible cellulitis of the right patella. Clindamycin 600 mg intravenous was given in the emergency room. We will continue. Blood cultures will be obtained. 5. Further recommendation per patient's clinical course. Patient seen and examined. Agree with DAPHNE note. It reflects my assessment and plan. Dictated by DAPHNE Farooq for Sreedhar Maddox MD cc: DAPHNE Farooq MD [facility]
[2016-07-23 04:57] LABS: BE 3.6 mmoll (-3.0-3.0); BLOOD TYPE ARTERIAL; DRAW SITE R BRACHIAL; METHB 1.3 % (0.0-1.5); PO2(98.6) 112 mmHg (60-100); SAMPLE BLOOD; SAO2 99.2 % (95.0-100.0); THB 13.3 g/dL (11.5-17.4); pH(98.6) 7.32 (7.35-7.45)
[2016-07-23 05:00] LABS: ALLEN TEST NO; MODALITY CANNULA; PCO2(98.6) 61 mmHg (35-45)
--- NOTE | 2016-07-23 05:23 | EKG Report ---
Test Performed on : 07/22/2016 10:21:31 PM Test Reason : AMS/OD Blood Pressure : / mmHG Vent. Rate : 083 BPM Atrial Rate : 083 BPM P-R Int : 134 ms QRS Dur : 082 ms QT Int : 358 ms P-R-T Axes : 033 081 074 degrees QTc Int : 420 ms Normal sinus rhythm. Normal ECG No previous ECGs available Unconfirmed Result
[2016-07-23 06:14] LABS: MANUAL DIFF NEEDED? NO
[2016-07-23 06:31] LABS: BASO% 0.2 % (0.0-0.8); EOS# 0.36 X1000 (0.0-0.7); EOS% 3.8 % (0.0-10.0); HEMATOCRIT 39.6 % (42.0-52.0); IMM GRAN# 0.01 X1000 (0.0-0.04); IMM GRAN% 0.1 % (0.0-0.5); LYMPH# 1.76 X1000 (1.2-3.4); LYMPH% 18.8 % (20.5-51.1); MCH 31.6 PG (27-31); MCHC 32.8 g/dL (33-37); MCV 96.1 FL (81-99); MONO# 0.88 X1000 (0.11-0.59); MONO% 9.4 % (1.7-9.3); MPV 8.9 FL (7.4-10.4); NEUT% 67.7 % (42.2-75.2); PLT 308 X1000 (130-400); RBC 4.12 XMIL (4.7-6.1)
[2016-07-23 06:44] LABS: AGAP 8; BUN 6 mg/dL (8-22); CALCIUM 8.2 mg/dL (8.8-10.2); CHLORIDE 103 mmol/L (98-107); COSMO 273; POTASSIUM 4.1 mmol/L (3.5-5.1); SODIUM 138 mmol/L (136-145); TCO2 27 mmol/L (25-35)
[2016-07-23 08:51] VITALS: BP 122/82
--- NOTE | 2016-07-23 15:01 | DISCHARGE SUMMARY ---
ADMISSION DATE: 07/23/2016 DISCHARGE DATE: 07/23/2016 DIAGNOSES: 1. Drug abuse with subsequent overdose likely amphetamines. 2. Acute respiratory failure secondary to drug use resolved. 3. Tobacco abuse. 4. Possible cellulitis of right patella. DIAGNOSTICS: 07/22/2016, chest x-ray, no evidence of acute chest pathology. 07/22/2016, CT of the head revealed no hemorrhage, negative brain CT without contrast. 07/22/2016, knee x-ray left patellar soft tissue edema but no evidence of acute osseous abnormality. MICROBIOLOGY: Urine culture reveals no growth. Blood cultures are pending. HOSPITAL COURSE: Mr. Toscano presented to the patient's place of work with respiratory arrest. The patient was found unresponsive with no gag reflex. He was subsequently intubated. On arrival to the emergency room he was given Narcan after which she woke up, and he extubating himself. Saturations dropped to about 85%. He received IM Narcan. At about 2 a.m. he lost his gag reflex and spontaneous respirations with saturations falling into the 70s. As he was preparing to be intubated evidently he you awoke with saturations of 98%. At that time, he admitted to using methamphetamine and having a fentanyl patch on his scrotum. Narcan drip was started. This was subsequently discontinued at 8 a.m. The patient has been monitored in ICU. He has been awake, cooperative. He has eaten lunch and breakfast today. He will carry on conversations with the family as well as staff. Family members are present and state that he is at his normal state. DISCHARGE PHYSICAL EXAMINATION: Cardiovascular: Regular rate and rhythm. S1 and S2 appreciated. Pulmonary: Breath sounds are clear with no increased work of breathing noted. Gastrointestinal: Abdomen is soft, nontender, nondistended with bowel sounds in all 4 quadrants. Extremities: No clubbing, cyanosis, or edema. Calves are nontender. Pulses are palpable x4. DISCHARGE MEDICATIONS: Clindamycin 300 mg p.o. q.6 hours for 7 days. This prescription was faxed to [facility] in [place]. DISCHARGE INSTRUCTIONS: He needs to follow up with his primary care physician in 2 weeks, sooner if needed. He has been instructed to return to the emergency room for temperature greater than 101.5, any redness,swelling, pain or difficulty walking on his right knee. He has been instructed to stop using illicit drugs. He was instructed to call for an ambulance for any shortness of breath, any difficulty breathing, palpitations dizziness, syncope or any concerns. If he has no PCP, he will be given the phone number for the physician referral and have assistance in obtaining a PCP. DISCHARGE ACTIVITY: As tolerated. DISCHARGE DIET: Regular. DISPOSITION: He is being discharged home in stable condition with family members. TIME SPENT: This is a greater than 30 minute discharge. Dictated by DAPHNE Macdonald for Jim Ayon MD cc: DAPHNE Macdonald MD
== END 2016-07-23 13:20 | disposition home or self-care (01) ==
LOC: ED 13:53 → SUATTDRO 07-23 00:05 → P.ICU 07-23 00:05
PROVIDERS: ATTEND Family Medicine